=== PATIENT | female | born 1955 | race African-American/Black ===

== ENCOUNTER 2017-07-23 15:08 | Inpatient (IN) | payer OTHER ==
[2017-07-23 18:49] VITALS: BMI 35.0
--- NOTE | 2017-07-23 21:24 | HP ---
COWS - Scale Resting Pulse: 0= [place] 80 or Below Sweatin= Chills/Flushing Restless Observation: 1= Difficult to Sit Still Pupil Size: 0= Normal to Room Light Bone or Joint Aches: 1= Mild Discomfort Runny Nose/ Eye Tearin= Runny Nose/Eyes GI Upset > 30mins: 0= None Tremor Observation: 1= Tremor [place], Not Seen Yawning Observation: 1= 1-2x During Session Anxiety or Irritability: 1=Feels Anxious/Irritable Goose Flesh Skin: 0=Smooth Skin COWS Score: 8 Admission [facility] Chief Complaint: heroin withdrawal symptoms Allergies/Adverse Reactions: Allergies Allergy/AdvReac Type Severity Reaction Status Date / Time No Known Allergies Allergy Verified 07/23/17 19:50 History of Present Illness: 61 yo female heroin and nicotine dependence is here seeking detox. PMHX: HTN, GERD, anxiety, insomnia. Denies suicidal / homicidal ideation. Denies hx of OD, black outs or seizure. Exam Limitations: No Limitations - Ebola screening Have you traveled outside of the country in the last 21 days: No (N) Have you had contact with anyone from an Ebola affected area: No Have you been sick,other than usual withdrawal symptoms: No Do you have a fever: No - Review of Systems Constitutional: Chills, Changes in sleep EENT: reports: Other (uses reading glasses) Respiratory: reports: Cough Cardiac: reports: No Symptoms Reported GI: reports: Poor Fluid Intake, Indigestion : reports: No Symptoms Reported Musculoskeletal: reports: Back Pain Integumentary: reports: Other (eczema) Neuro: reports: No Symptoms reported Endocrine: reports: Increased Thirst Hematology: reports: Other (hx of anemia in the past with blood transfusion) Psychiatric: reports: Orientated x3, Anxious Other Systems: Reviewed and Negative Patient History - Patient Medical History Hx Anemia: No (hx of anemia with blood transfusion ) Hx Asthma: No Hx Chronic Obstructive Pulmonary Disease (COPD): No Hx Cancer: No Hx Cardiac Disorders: No Hx Congestive Heart Failure: No Hx Hypertension: Yes (ON [id number]) Hx Hypercholesterolemia: No Hx Pacemaker: No HX Cerebrovascular Accident: No Hx Seizures: No Hx Dementia: No Hx Diabetes: No Hx Gastrointestinal Disorders: No Hx Liver Disease: No Hx Genitourinary Disorders: No Hx Sexually Transmitted Disorders: No Hx Renal Disease (ESRD): No Hx Thyroid Disease: No Hx Human Immunodeficiency Virus (HIV): No (last tested a year ago, declines testing ) Hx Hepatitis C: No Hx Depression: No Hx Suicide Attempt: No Hx Bipolar Disorder: No Hx Schizophrenia: No Other Medical History: anxiety - Patient Surgical History Past Surgical History: No Hx Neurologic Surgery: No Hx Cataract Extraction: No Hx Cardiac Surgery: No Hx Lung Surgery: No Hx Breast Surgery: No Hx Breast Biopsy: No Hx Abdominal Surgery: No Hx Appendectomy: No Hx Cholecystectomy: No Hx Genitourinary Surgery: No Hx Section: No Hx Orthopedic Surgery: No Anesthesia Reaction: No - PPD History Previous Implant?: Yes Documented Results: Negative w/o proof Implanted On Prior R Admission?: No PPD to be Administered?: No - Reproductive History Patient is a Female of Child Bearing Age (11 -55 yrs old): No (post menopausal ) - Smoking Cessation Smoking history: Current every day smoker Have you smoked in the past 12 months: Yes Aproximately how many cigarettes per day: 10 Hx Chewing Tobacco Use: No Initiated information on smoking cessation: Yes 'Breaking Loose' booklet given: 07/23/17 - Substance & Tx. History Hx Alcohol Use: Yes Hx Substance Use: Yes Substance Use Type: Heroin Hx Substance Use Treatment: Yes (Last detox January 2017 [facility] ) - Substances Abused Heroin Route: Inhalation Frequency: Daily Amount used: 1 1/2 GRAMS DAILY Age of first use: 19 Date of Last Use: 07/23/17 Family Disease History - Family Disease History Family Disease History: Other: Father (alive ), Mother (, bleeding d/o ) Admission Physical Exam [facility] - Vital Signs Vital Signs: Vital Signs - 24 hr 07/23/17 18:47 Pulse Rate 79 Respiratory 18 Rate Blood Pressure 135/80 - Physical General Appearance: Yes: Obese, Anxious HEENTM: Yes: EOMI, Hearing grossly Normal, Normal ENT Inspection, Normocephalic , Normal Voice, Pharynx Normal, Tm's normal, Other (chelithis) Respiratory: Yes: Chest Non-Tender, No Respiratory Distress, No Accessory Muscle Use, Wheezing Neck: Yes: Within Normal Limits Breast: Yes: Breast Exam Deferred Cardiology: Yes: Regular Rhythm, Regular Rate Abdominal: Yes: Normal Bowel Sounds, Flat, Soft, Protuberent Genitourinary: Yes: Within Normal Limits Back: Yes: Normal Inspection Musculoskeletal: Yes: full range of Motion, Gait Steady, Pelvis Stable, Back pain Extremities: Yes: Within Normal Limits Neurological: Yes: shiatsu therapist II-XII NML intact, Fully Oriented, Alert, Motor Strength 5/5, Depressed Affect Integumentary: Yes: Normal Color, Warm, Moist Lymphatic: Yes: Within Normal Limits - Diagnostic (1) Hypertension Current Visit: Yes Status: Chronic Qualifiers: Hypertension type: essential hypertension Qualified Code(s): I10 - Essential (primary) hypertension (2) Opioid dependence with withdrawal Current Visit: Yes Status: Acute (3) Low back pain Current Visit: Yes Status: Acute Qualifiers: Chronicity: acute Back pain laterality: midline Sciatica presence: without sciatica Qualified Code(s): M54.5 - Low back pain (4) Dehydration Current Visit: Yes Status: Acute (5) Nicotine dependence Current Visit: Yes Status: Acute Qualifiers: Nicotine product type: cigarettes Cleared for Admission [facility] - Detox or Rehab [facility] Level of Care: Medically Supervised Detox Regimen/Protocol: Methadone [facility] Breath Alcohol Content Breath Alcohol Content: 0.008 Urine Pregancy Test - Result Urine Test Results: Negative- NO Line Present Urine Drug Screen - Results Urine Drug Screen Results: OPI-Opiates
[2017-07-23] MEDS ORDERED: MENTHOL/PHENOL 1 EACH UD MM PRN (21:34)
[2017-07-23] MEDS ORDERED: NICOTINE POLACRILEX 2 MG GUM BC PRN (21:34)
[2017-07-23] MEDS ORDERED: P-EPHED 60MG/TRIPROLIDI 2.5MG TABLET PO PRN (21:34)
[2017-07-23] MEDS ORDERED: IBUPROFEN 400 MG TABLET (FP) PO PRN (21:34)
[2017-07-23] MEDS ORDERED: LOPERAMIDE HCL 2 MG CAPSULE PO PRN (21:34)
[2017-07-23] MEDS ORDERED: MAGNESIUM CITRATE 300 ML BOTTLE PO PRN (21:34)
[2017-07-23] MEDS ORDERED: METHADONE HCL 10 MG TABLET (FOR DETOX USE ONLY) PO ONE ×2 (21:34→23:00)
[2017-07-23] MEDS ORDERED: MAG HYDROX/AL HYDROX/SIMETH 30 ML UNIT-DOSE CUP PO PRN (21:34)
[2017-07-23] MEDS ORDERED: ACETAMINOPHEN 325 MG TABLET (FP) PO PRN (21:34)
[2017-07-23] MEDS ORDERED: MAGNESIUM HYDROX 2400MG/30ML ORAL SUSPENSION 30 ML CUP PO PRN (21:34)
[2017-07-23] MEDS: LIDOCAINE 5% TOPICAL PATCH TP SCH (23:26)
[2017-07-23] MEDS: LIDOCAINE PATCH REMOVAL MC SCH (23:26)
[2017-07-23] MEDS: diazePAM 5 MG TABLET PO PRN (23:27)
[2017-07-23] MEDS: THIAMINE HCL 100 MG TABLET (FP) PO SCH (23:28)
[2017-07-24] MEDS ORDERED: METHADONE HCL 10 MG TABLET (FOR DETOX USE ONLY) PO ONE (10:00)
[2017-07-24 10:05] LABS: HEMATOCRIT 39.5 % (32.4-45.2); HEMOGLOBIN 13.2 GM/dL (10.7-15.3); MCHC 33.4 g/dl (32.0-36.0); MEAN PLT VOLUME 10.6 fl (7.5-11.1); PLATELET COUNT 158 K/MM3 (134-434); RBC 4.11 M/mm3 (3.60-5.2); RDW 15.3 % (11.6-15.6); WHITE BLOOD COUNT 10.5 K/mm3 (4.0-10.0)
--- NOTE | 2017-07-24 10:20 | EKG ---
Test Reason : Blood Pressure : / mmHG Vent. Rate : 081 BPM Atrial Rate : 081 BPM P-R Int : 170 ms QRS Dur : 080 ms QT Int : 396 ms P-R-T Axes : 054 061 092 degrees QTc Int : 460 ms NORMAL SINUS RHYTHM NONSPECIFIC T WAVE ABNORMALITY NO PREVIOUS ECGS AVAILABLE Confirmed by LIBERTAD CISNEROS MD ([id number]) on 07/24/2017 10:20:18 AM Referred By: Confirmed By:LIBERTAD CISNEROS MD
[2017-07-24 10:27] LABS: CHLORIDE 104 mmol/L (98-107); POTASSIUM 4.1 mmol/L (3.5-5.1); SODIUM 139 mmol/L (136-145)
--- NOTE | 2017-07-24 10:42 | CONSULT ---
[facility] Psychiatric Consult - Data Date of interview: 07/24/17 Admission source: [facility] Identifying data: Patient is a 61 year old female, without kids, unemployed, and is currently residing with her aunt. This is patient's first admission to detox. Pt. admitted to for heroin dependence. Substance Abuse History: Smoking Cessation. Smoking history: Current every day smoker. Have you smoked in the past 12 months: Yes. Aproximately how many cigarettes per day: 10. Hx Chewing Tobacco Use: No. Initiated information on smoking cessation: Yes. 'Breaking Loose' booklet given: 07/23/17. - Substance & Tx. History. Hx Alcohol Use: Yes. Hx Substance Use: Yes. Substance Use Type : Heroin. Hx Substance Use Treatment: Yes (Last detox January 2017 [facility] ). - Substances Abused. Heroin. Route: Inhalation. Frequency: Daily. Amount used: 1 1/2 GRAMS DAILY. Age of first use: 19. Date of Last Use : 07/23/17 Medical History: hx of anemia with blood transfusion, hypertension. Psychiatric History: Patient denies h/o psychiatric hospitalizations, outpatient care, and suicide attempt. Physical/Sexual Abuse/Trauma History: Denies. Mental Status Exam - Mental Status Exam Alert and Oriented to: Time, Place, Person Cognitive Function: Good Patient Appearance: Well Groomed Mood: Withdrawn Affect: Mood Congruent Patient Behavior: Fatigued, Cooperative Speech Pattern: Delayed Voice Loudness: Normal Thought Process: Goal Oriented Thought Disorder: Not Present Hallucinations: Denies Suicidal Ideation: Denies Homicidal Ideation: Denies Insight/Judgement: Poor Sleep: Fair Appetite: Fair Muscle strength/Tone: Normal Gait/Station: Other (Did not observe patient's gait.) Psychiatric Findings - Problem List ([place] 1, 2,3) (1) Nicotine dependence Current Visit: Yes Status: Chronic Qualifiers: Nicotine product type: cigarettes (2) Opioid dependence with withdrawal Current Visit: Yes Status: Acute - Initial Treatment Plan Initial Treatment Plan: Psychoeducation provided. Detoxification in progress. Observation.
[2017-07-24] MEDS: NICOTINE 14 MG/24 HOURS TOPICAL PATCH TD SCH (10:44)
[2017-07-24] MEDS: PRENATAL VITAMINS W/ FOLIC ACID TABLET (FP) PO SCH (10:44)
[2017-07-24] MEDS: diazePAM 5 MG TABLET PO PRN ×2 (10:45→22:36)
[2017-07-24] MEDS: HYDROCHLOROTHIAZIDE 12.5 MG CAPSULE (FP) PO SCH (10:45)
[2017-07-24] MEDS: guaiFENesin/D-METHORPHAN HB 10 ML UNIT-DOSE CUPS PO PRN (10:51)
[2017-07-24 10:53] LABS: ALBUMIN 3.2 g/dl (3.4-5.0); ALK PHOS 82 U/L (45-117); ANION GAP 8 (8-16); BILIRUBIN,TOTAL 0.4 mg/dL (0.2-1.0); BLOOD UREA NITROGEN 12 mg/dL (7-18); CALCIUM 9.1 mg/dL (8.5-10.1); CO2 27 mmol/L (21-32); CREATININE 0.9 mg/dL (0.55-1.02); GLUCOSE,RANDOM 151 mg/dL (74-106); SGOT/AST 12 U/L (15-37); SGPT/ALT 29 U/L (12-78)
[2017-07-24] MEDS: LIDOCAINE 5% TOPICAL PATCH TP SCH (11:03)
[2017-07-24] MEDS ORDERED: AZITHROMYCIN 250 MG TABLET PO ONE (11:15)
[2017-07-24 11:16] LABS: SICKLE CELL SCREEN NEGATIVE (NEGATIVE)
[2017-07-24] MEDS ORDERED: PNEUMOCOCCAL 23 VACCINE 0.5 ML VIAL IM ONE (12:00)
[2017-07-24] MEDS ORDERED: PNEUMOC 13-VAL CONJ-DIP CRM/PF 0.5 ML DISP.SYRIN IM ONE (12:00)
--- NOTE | 2017-07-24 12:33 | PN ---
[facility] COWS - Scale Resting Pulse: 1= [place] 81-100 Sweatin= Chills/Flushing Restless Observation: 1= Difficult to Sit Still Pupil Size: 1= Pupils >than Normal Bone or Joint Aches: 2= Severe Diffuse Aches Runny Nose/ Eye Tearin= Nasal Congestion GI Upset > 30mins: 1= Stomach Cramp Tremor Observation of Outstretched Hands: 2= Slight Tremor Visible Yawning Observation: 2= >3x During Session Anxiety or Irritability: 2=Irritable/Anxious Goose Flesh Skin: 0=Smooth Skin COWS Score: 14 BHS Progress Note (SOAP) Subjective: joint pain body ache elevation of blood pressure anxiety restlessness Objective: 07/24/17 12:32 Vital Signs Temperature 96.8 F L 07/24/17 09:21 Pulse Rate 82 07/24/17 09:21 Respiratory Rate 18 07/24/17 09:21 Blood Pressure 144/74 07/24/17 09:21 O2 Sat by Pulse Oximetry (%) Laboratory Last Values WBC 10.5 K/mm3 (4.0-10.0) H 07/24/17 07:30 RBC 4.11 M/mm3 (3.60-5.2) 07/24/17 07:30 Hgb 13.2 GM/dL (10.7-15.3) 07/24/17 07:30 Hct 39.5 % (32.4-45.2) 07/24/17 07:30 MCV 96.0 fl (80-96) 07/24/17 07:30 MCH 32.0 pg (25.7-33.7) 07/24/17 07:30 MCHC 33.4 g/dl (32.0-36.0) 07/24/17 07:30 RDW 15.3 % (11.6-15.6) 07/24/17 07:30 Plt Count 158 K/MM3 (134-434) 07/24/17 07:30 MPV 10.6 fl (7.5-11.1) 07/24/17 07:30 Sickle Cell Screen Negative (NEGATIVE) 07/24/17 07:30 Sodium 139 mmol/L (136-145) 07/24/17 07:30 Potassium 4.1 mmol/L (3.5-5.1) 07/24/17 07:30 Chloride 104 mmol/L (98-107) 07/24/17 07:30 Carbon Dioxide 27 mmol/L (21-32) 07/24/17 07:30 Anion Gap 8 (8-16) 07/24/17 07:30 BUN 12 mg/dL (7-18) 07/24/17 07:30 Creatinine 0.9 mg/dL (0.55-1.02) 07/24/17 07:30 Creat Clearance w eGFR > 60 (>60) 07/24/17 07:30 Random Glucose 151 mg/dL (74-106) H 07/24/17 07:30 Calcium 9.1 mg/dL (8.5-10.1) 07/24/17 07:30 Total Bilirubin 0.4 mg/dL (0.2-1.0) 07/24/17 07:30 AST 12 U/L (15-37) L 07/24/17 07:30 ALT 29 U/L (12-78) 07/24/17 07:30 Alkaline Phosphatase 82 U/L (45-117) 07/24/17 07:30 Total Protein 7.0 g/dl (6.4-8.2) 07/24/17 07:30 Albumin 3.2 g/dl (3.4-5.0) L 07/24/17 07:30 lab noted Assessment: 07/24/17 12:32 withdrawal sx Plan: continue detox
[2017-07-24] MEDS: amLODIPine BESYLATE 10 MG TABLET (FP) PO SCH (15:15)
[2017-07-24] MEDS ORDERED: cloNIDine HCL 0.1 MG TABLET PO ONE (22:00)
--- NOTE | 2017-07-24 22:07 | PN ---
[facility] Progress Note Note: Called by Nurse because of elevated B/P. (R) 173/110. (L) 170/113. Had Norvasc 10 mg BID today (2nd dose at 15:15). Vital Signs - 24 hr 07/23/17 07/24/17 07/24/17 23:43 00:30 03:30 Temperature 97.5 F L Pulse Rate 87 Respiratory 18 16 16 Rate Blood Pressure 160/94 07/24/17 07/24/17 07/24/17 06:30 06:37 07:07 Temperature 98 F Pulse Rate 86 68 Respiratory 16 18 18 Rate Blood Pressure 164/102 126/68 07/24/17 07/24/17 07/24/17 09:21 14:24 18:11 Temperature 96.8 F L 98.1 F 97.9 F Pulse Rate 82 93 H 89 Respiratory 18 16 18 Rate Blood Pressure 144/74 149/95 155/108 07/24/17 21:25 Temperature 98.9 F Pulse Rate 95 H Respiratory 18 Rate Blood Pressure 173/110 Laboratory Results - last 24 hr 07/24/17 07/24/17 07/24/17 07:30 07:30 07:30 WBC 10.5 H RBC 4.11 Hgb 13.2 Hct 39.5 MCV 96.0 MCH 32.0 MCHC 33.4 RDW 15.3 Plt Count 158 MPV 10.6 Sickle Cell Screen Negative Sodium 139 Potassium 4.1 Chloride 104 Carbon Dioxide 27 Anion Gap 8 BUN 12 Creatinine 0.9 Creat Clearance w eGFR > 60 Random Glucose 151 H Calcium 9.1 Total Bilirubin 0.4 AST 12 L ALT 29 Alkaline Phosphatase 82 Total Protein 7.0 Albumin 3.2 L RPR Titer Nonreactive Denies chest pain, SOB, headache/neuro changes. Prescribed Clonidine 0.2 mg one dose at 10 pm. Continue B/P protocol.
[2017-07-24] MEDS: THIAMINE HCL 100 MG TABLET (FP) PO SCH (22:36)
[2017-07-24] MEDS: LIDOCAINE PATCH REMOVAL MC SCH (22:37)
[2017-07-24] MEDS: MELATONIN 5 MG TABLETS PO PRN (22:37)
[2017-07-25] MEDS: cloNIDine HCL 0.1 MG TABLET PO PRN (06:49)
[2017-07-25] MEDS ORDERED: METHADONE HCL 5 MG TABLET (FOR DETOX USE ONLY) PO ONE (10:00)
[2017-07-25] MEDS: amLODIPine BESYLATE 10 MG TABLET (FP) PO SCH (10:30)
[2017-07-25] MEDS: HYDROCHLOROTHIAZIDE 12.5 MG CAPSULE (FP) PO SCH (10:31)
[2017-07-25] MEDS: PRENATAL VITAMINS W/ FOLIC ACID TABLET (FP) PO SCH (10:31)
[2017-07-25] MEDS: diazePAM 5 MG TABLET PO PRN (10:31)
[2017-07-25] MEDS: AZITHROMYCIN 250 MG TABLET PO SCH (10:31)
[2017-07-25] MEDS: LIDOCAINE 5% TOPICAL PATCH TP SCH (10:33)
[2017-07-25] MEDS: NICOTINE 14 MG/24 HOURS TOPICAL PATCH TD SCH (10:33)
--- NOTE | 2017-07-25 14:02 | PN ---
S Progress Note (SOAP) Subjective: alert,anxious,interrupted sleep, body aches, cough Objective: 07/25/17 13:59 Vital Signs Temperature 98.1 F 07/25/17 10:00 Pulse Rate 96 H 07/25/17 10:00 Respiratory Rate 18 07/25/17 10:00 Blood Pressure 134/97 07/25/17 10:00 O2 Sat by Pulse Oximetry (%) Laboratory Last Values WBC 10.5 K/mm3 (4.0-10.0) H 07/24/17 07:30 RBC 4.11 M/mm3 (3.60-5.2) 07/24/17 07:30 Hgb 13.2 GM/dL (10.7-15.3) 07/24/17 07:30 Hct 39.5 % (32.4-45.2) 07/24/17 07:30 MCV 96.0 fl (80-96) 07/24/17 07:30 MCH 32.0 pg (25.7-33.7) 07/24/17 07:30 MCHC 33.4 g/dl (32.0-36.0) 07/24/17 07:30 RDW 15.3 % (11.6-15.6) 07/24/17 07:30 Plt Count 158 K/MM3 (134-434) 07/24/17 07:30 MPV 10.6 fl (7.5-11.1) 07/24/17 07:30 Sickle Cell Screen Negative (NEGATIVE) 07/24/17 07:30 Sodium 139 mmol/L (136-145) 07/24/17 07:30 Potassium 4.1 mmol/L (3.5-5.1) 07/24/17 07:30 Chloride 104 mmol/L (98-107) 07/24/17 07:30 Carbon Dioxide 27 mmol/L (21-32) 07/24/17 07:30 Anion Gap 8 (8-16) 07/24/17 07:30 BUN 12 mg/dL (7-18) 07/24/17 07:30 Creatinine 0.9 mg/dL (0.55-1.02) 07/24/17 07:30 Creat Clearance w eGFR > 60 (>60) 07/24/17 07:30 Random Glucose 151 mg/dL (74-106) H 07/24/17 07:30 Calcium 9.1 mg/dL (8.5-10.1) 07/24/17 07:30 Total Bilirubin 0.4 mg/dL (0.2-1.0) 07/24/17 07:30 AST 12 U/L (15-37) L 07/24/17 07:30 ALT 29 U/L (12-78) 07/24/17 07:30 Alkaline Phosphatase 82 U/L (45-117) 07/24/17 07:30 Total Protein 7.0 g/dl (6.4-8.2) 07/24/17 07:30 Albumin 3.2 g/dl (3.4-5.0) L 07/24/17 07:30 RPR Titer Nonreactive (NONREACTIVE) 07/24/17 07:30 Assessment: 07/25/17 13:59 AOx3, no distress + cough no adventitious breath sounds + body aches Full ROM, ambulating in the unit -withdrawal sx 07/25/17 14:02 Plan: Increase fluids continue Azithromycin and Guaifenessin DM 10 ml q6h Continue detox continue to monitor
[2017-07-25] MEDS: THIAMINE HCL 100 MG TABLET (FP) PO SCH (22:51)
[2017-07-25] MEDS: LIDOCAINE PATCH REMOVAL MC SCH (22:51)
[2017-07-26] MEDS: MELATONIN 5 MG TABLETS PO PRN (00:39)
[2017-07-26] MEDS: diazePAM 5 MG TABLET PO PRN ×3 (04:24→16:47)
[2017-07-26] MEDS ORDERED: METHADONE HCL 5 MG TABLET (FOR DETOX USE ONLY) PO ONE (10:00)
[2017-07-26] MEDS: HYDROCHLOROTHIAZIDE 12.5 MG CAPSULE (FP) PO SCH (10:29)
[2017-07-26] MEDS: NICOTINE 14 MG/24 HOURS TOPICAL PATCH TD SCH (10:29)
[2017-07-26] MEDS: LIDOCAINE 5% TOPICAL PATCH TP SCH (10:29)
[2017-07-26] MEDS: PRENATAL VITAMINS W/ FOLIC ACID TABLET (FP) PO SCH (10:29)
[2017-07-26] MEDS: amLODIPine BESYLATE 10 MG TABLET (FP) PO SCH (10:29)
[2017-07-26] MEDS: AZITHROMYCIN 250 MG TABLET PO SCH (10:29)
[2017-07-26] MEDS: ALBUTEROL SO4 0.042% IH SOL 1.25 MG/3 ML VIAL.NEB NEB PRN ×2 (12:45→23:50)
[2017-07-26] MEDS: BUDESONIDE/FORMETEROL FUMARATE 80/4.5 mcg INHALER IH SCH ×2 (12:49→22:38)
--- NOTE | 2017-07-26 14:07 | PN ---
S Progress Note (SOAP) Subjective: joint pain body ache anxiety Objective: 07/26/17 14:07 Vital Signs Temperature 97.1 F L 07/26/17 09:22 Pulse Rate 98 H 07/26/17 09:22 Respiratory Rate 18 07/26/17 09:22 Blood Pressure 134/97 07/26/17 09:22 O2 Sat by Pulse Oximetry (%) Laboratory Last Values WBC 10.5 K/mm3 (4.0-10.0) H 07/24/17 07:30 RBC 4.11 M/mm3 (3.60-5.2) 07/24/17 07:30 Hgb 13.2 GM/dL (10.7-15.3) 07/24/17 07:30 Hct 39.5 % (32.4-45.2) 07/24/17 07:30 MCV 96.0 fl (80-96) 07/24/17 07:30 MCH 32.0 pg (25.7-33.7) 07/24/17 07:30 MCHC 33.4 g/dl (32.0-36.0) 07/24/17 07:30 RDW 15.3 % (11.6-15.6) 07/24/17 07:30 Plt Count 158 K/MM3 (134-434) 07/24/17 07:30 MPV 10.6 fl (7.5-11.1) 07/24/17 07:30 Sickle Cell Screen Negative (NEGATIVE) 07/24/17 07:30 Sodium 139 mmol/L (136-145) 07/24/17 07:30 Potassium 4.1 mmol/L (3.5-5.1) 07/24/17 07:30 Chloride 104 mmol/L (98-107) 07/24/17 07:30 Carbon Dioxide 27 mmol/L (21-32) 07/24/17 07:30 Anion Gap 8 (8-16) 07/24/17 07:30 BUN 12 mg/dL (7-18) 07/24/17 07:30 Creatinine 0.9 mg/dL (0.55-1.02) 07/24/17 07:30 Creat Clearance w eGFR > 60 (>60) 07/24/17 07:30 Random Glucose 151 mg/dL (74-106) H 07/24/17 07:30 Calcium 9.1 mg/dL (8.5-10.1) 07/24/17 07:30 Total Bilirubin 0.4 mg/dL (0.2-1.0) 07/24/17 07:30 AST 12 U/L (15-37) L 07/24/17 07:30 ALT 29 U/L (12-78) 07/24/17 07:30 Alkaline Phosphatase 82 U/L (45-117) 07/24/17 07:30 Total Protein 7.0 g/dl (6.4-8.2) 07/24/17 07:30 Albumin 3.2 g/dl (3.4-5.0) L 07/24/17 07:30 RPR Titer Nonreactive (NONREACTIVE) 07/24/17 07:30 lab noted Assessment: 07/26/17 14:07 withdrawal sx asthma Plan: continue detox asthma pump nebulizer symbicort
[2017-07-26] MEDS: ALBUTEROL SO4 18 GM HFA INHALER IH PRN ×2 (14:57→22:38)
[2017-07-26] MEDS: guaiFENesin/D-METHORPHAN HB 10 ML UNIT-DOSE CUPS PO PRN (14:58)
[2017-07-26] MEDS: predniSONE 20 MG TABLET (UD) PO SCH (17:25)
--- NOTE | 2017-07-26 17:27 | PN ---
[facility] Progress Note Note: Patient is a 61 yo female with hx of COPD with cough and wheezing. Tx with Neb tx . Denies CP, SOB, vertigo. Vital Signs Temperature 97.9 F 07/26/17 14:07 Pulse Rate 106 H 07/26/17 14:07 Respiratory Rate 18 07/26/17 14:07 Blood Pressure 136/97 07/26/17 14:07 O2 Sat by Pulse Oximetry (%) Laboratory Last Values WBC 10.5 K/mm3 (4.0-10.0) H 07/24/17 07:30 RBC 4.11 M/mm3 (3.60-5.2) 07/24/17 07:30 Hgb 13.2 GM/dL (10.7-15.3) 07/24/17 07:30 Hct 39.5 % (32.4-45.2) 07/24/17 07:30 MCV 96.0 fl (80-96) 07/24/17 07:30 MCH 32.0 pg (25.7-33.7) 07/24/17 07:30 MCHC 33.4 g/dl (32.0-36.0) 07/24/17 07:30 RDW 15.3 % (11.6-15.6) 07/24/17 07:30 Plt Count 158 K/MM3 (134-434) 07/24/17 07:30 MPV 10.6 fl (7.5-11.1) 07/24/17 07:30 Sickle Cell Screen Negative (NEGATIVE) 07/24/17 07:30 Sodium 139 mmol/L (136-145) 07/24/17 07:30 Potassium 4.1 mmol/L (3.5-5.1) 07/24/17 07:30 Chloride 104 mmol/L (98-107) 07/24/17 07:30 Carbon Dioxide 27 mmol/L (21-32) 07/24/17 07:30 Anion Gap 8 (8-16) 07/24/17 07:30 BUN 12 mg/dL (7-18) 07/24/17 07:30 Creatinine 0.9 mg/dL (0.55-1.02) 07/24/17 07:30 Creat Clearance w eGFR > 60 (>60) 07/24/17 07:30 Random Glucose 151 mg/dL (74-106) H 07/24/17 07:30 Calcium 9.1 mg/dL (8.5-10.1) 07/24/17 07:30 Total Bilirubin 0.4 mg/dL (0.2-1.0) 07/24/17 07:30 AST 12 U/L (15-37) L 07/24/17 07:30 ALT 29 U/L (12-78) 07/24/17 07:30 Alkaline Phosphatase 82 U/L (45-117) 07/24/17 07:30 Total Protein 7.0 g/dl (6.4-8.2) 07/24/17 07:30 Albumin 3.2 g/dl (3.4-5.0) L 07/24/17 07:30 RPR Titer Nonreactive (NONREACTIVE) 07/24/17 07:30 chest x-ray 07/24/17 negative for pneumonia A/P Patient AOx3, in no apparent distress + cough, + wheezing b/l lower lobes, resp non-labored s1, s2, no jvd no edema, erythema - Bronchitis Plan: [place] 500mg today + 250 mg x 4 days prednisone 40mg x 3 days DuoNEB PRN increase fluids continue to monitor
[2017-07-26] MEDS ORDERED: AZITHROMYCIN 250 MG TABLET PO ONE (17:30)
[2017-07-26] MEDS: guaiFENesin/D-METHORPHAN HB 1 EACH TAB.ER.12H PO SCH (22:39)
[2017-07-26] MEDS: THIAMINE HCL 100 MG TABLET (FP) PO SCH (22:39)
[2017-07-26] MEDS: hydrOXYzine PAMOATE 50 MG CAPSULE (FP) PO PRN (22:41)
[2017-07-26] MEDS: LIDOCAINE PATCH REMOVAL MC SCH (22:46)
[2017-07-27] MEDS: ALBUTEROL SO4 0.042% IH SOL 1.25 MG/3 ML VIAL.NEB NEB PRN (05:52)
[2017-07-27] MEDS: cloNIDine HCL 0.1 MG TABLET PO PRN ×2 (05:53→22:44)
[2017-07-27] MEDS: hydrOXYzine PAMOATE 50 MG CAPSULE (FP) PO PRN (05:53)
[2017-07-27] MEDS ORDERED: metFORMIN HCL 500 MG TABLET (FP) PO ONE (09:30)
--- NOTE | 2017-07-27 09:39 | PN ---
[facility] Progress Note (SOAP) Subjective: less opiate withdrawal less sweat no tremor mild joint pain chronic back pain Objective: 07/27/17 09:38 Vital Signs Temperature 98.2 F 07/27/17 06:10 Pulse Rate 102 H 07/27/17 06:50 Respiratory Rate 20 07/27/17 06:50 Blood Pressure 117/74 07/27/17 06:50 O2 Sat by Pulse Oximetry (%) Laboratory Last Values WBC 10.5 K/mm3 (4.0-10.0) H 07/24/17 07:30 RBC 4.11 M/mm3 (3.60-5.2) 07/24/17 07:30 Hgb 13.2 GM/dL (10.7-15.3) 07/24/17 07:30 Hct 39.5 % (32.4-45.2) 07/24/17 07:30 MCV 96.0 fl (80-96) 07/24/17 07:30 MCH 32.0 pg (25.7-33.7) 07/24/17 07:30 MCHC 33.4 g/dl (32.0-36.0) 07/24/17 07:30 RDW 15.3 % (11.6-15.6) 07/24/17 07:30 Plt Count 158 K/MM3 (134-434) 07/24/17 07:30 MPV 10.6 fl (7.5-11.1) 07/24/17 07:30 Sickle Cell Screen Negative (NEGATIVE) 07/24/17 07:30 Sodium 139 mmol/L (136-145) 07/24/17 07:30 Potassium 4.1 mmol/L (3.5-5.1) 07/24/17 07:30 Chloride 104 mmol/L (98-107) 07/24/17 07:30 Carbon Dioxide 27 mmol/L (21-32) 07/24/17 07:30 Anion Gap 8 (8-16) 07/24/17 07:30 BUN 12 mg/dL (7-18) 07/24/17 07:30 Creatinine 0.9 mg/dL (0.55-1.02) 07/24/17 07:30 Creat Clearance w eGFR > 60 (>60) 07/24/17 07:30 POC Glucometer 241 UNITS (80-120) 07/27/17 05:56 Random Glucose 151 mg/dL (74-106) H 07/24/17 07:30 Calcium 9.1 mg/dL (8.5-10.1) 07/24/17 07:30 Total Bilirubin 0.4 mg/dL (0.2-1.0) 07/24/17 07:30 AST 12 U/L (15-37) L 07/24/17 07:30 ALT 29 U/L (12-78) 07/24/17 07:30 Alkaline Phosphatase 82 U/L (45-117) 07/24/17 07:30 Total Protein 7.0 g/dl (6.4-8.2) 07/24/17 07:30 Albumin 3.2 g/dl (3.4-5.0) L 07/24/17 07:30 RPR Titer Nonreactive (NONREACTIVE) 07/24/17 07:30 lab noted Assessment: 07/27/17 09:38 mild opiate withdrawal sx hypertension asthma 07/27/17 09:39 copd elevation of serum glucose possible related to prednison for copd treatment 07/27/17 09:42 Plan: medically supervised detox health teaching on weight loss dietary consultation on DM
[2017-07-27] MEDS ORDERED: METHADONE HCL 10 MG TABLET (FOR DETOX USE ONLY) PO ONE (10:00)
[2017-07-27] MEDS: predniSONE 20 MG TABLET (UD) PO SCH (10:23)
[2017-07-27] MEDS: PRENATAL VITAMINS W/ FOLIC ACID TABLET (FP) PO SCH (10:23)
[2017-07-27] MEDS: amLODIPine BESYLATE 10 MG TABLET (FP) PO SCH (10:23)
[2017-07-27] MEDS: AZITHROMYCIN 250 MG TABLET PO SCH (10:23)
[2017-07-27] MEDS: HYDROCHLOROTHIAZIDE 12.5 MG CAPSULE (FP) PO SCH (10:23)
[2017-07-27] MEDS: BUDESONIDE/FORMETEROL FUMARATE 80/4.5 mcg INHALER IH SCH ×2 (10:24→22:46)
[2017-07-27] MEDS: LIDOCAINE 5% TOPICAL PATCH TP SCH (10:30)
--- NOTE | 2017-07-27 10:49 | PN ---
Psychiatric Progress Note Vital Signs: Vital Signs Period Temp Pulse Resp BP Sys/Roy Pulse Ox Last 24 Hr 97.5 F-98.4 F 102-110 18-20 117-146/74-109 Date of Session: 07/27/17 Chief Complaint:: Insomnia HPI: Patient reports severe insomnia, reports did sleeo well since coming to detox. Patient reports taskign p[rior to admission: Seroquel 200mg po qhs. Elavil 100mg po qhs Current Medications: Active Medications Generic Name Dose Route Start Last Admin Trade Name Freq PRN Reason Stop Dose Admin Acetaminophen 650 mg 07/23/17 21:34 Tylenol - PO Q4H PRN FEVER Al Hydroxide/Mg Hydroxide 30 ml 07/23/17 21:34 Mylanta Oral Suspension - PO Q6H PRN DYSPEPSIA Albuterol Sulfate 1 amp 07/26/17 12:27 07/27/17 05:52 Ventolin 0.042trength) - NEB 1 amp Q6H PRN Administration SHORT OF BREATH/WHEEZING Albuterol Sulfate 2 puff 07/26/17 12:27 07/26/17 22:38 Ventolin Hfa Inhaler - IH 2 puff Q4H PRN Administration SHORT OF BREATH/WHEEZING Amlodipine Besylate 10 mg 07/24/17 11:15 07/27/17 10:23 Norvasc - PO 10 mg DAILY CLAIRE Administration Azithromycin 250 mg 07/27/17 10:00 07/27/17 10:23 Zithromax - PO 07/30/17 10:00 250 mg DAILY CLAIRE Administration Budesonide/Formoterol Fumarate 2 puff 07/26/17 12:30 07/27/17 10:24 Symbicort 80/4.5mcg - IH 2 puff BID CLAIRE Administration Clonidine 0.1 mg 07/25/17 06:07 07/27/17 05:53 Catapres - PO 0.1 mg Q8H PRN Administration withdrawal sx's Eucalyptus/Menthol/Phenol/Sorbitol 1 each 07/23/17 21:34 Cepastat Lozenge - MM Q4H PRN SORE THROAT Guaifenesin 1 tablet 07/26/17 22:00 07/26/17 22:39 Mucinex Dm - PO 1 tablet BID CLAIRE Administration Hydrochlorothiazide 12.5 mg 07/24/17 10:00 07/27/17 10:23 Hctz - PO 12.5 mg DAILY CLAIRE Administration Hydroxyzine Pamoate 50 mg 07/23/17 21:34 07/27/17 05:53 Vistaril - PO 50 mg Q4H PRN Administration AGITATION Ibuprofen 400 mg 07/23/17 21:34 07/26/17 16:46 Motrin - PO 400 mg Q6H PRN Administration PAIN LEVEL 4-6 Lidocaine 1 patch 07/23/17 21:45 07/27/17 10:30 Lidoderm Patch - TP Not Given DAILY CLAIRE Loperamide HCl 4 mg 07/23/17 21:34 07/23/17 23:38 Imodium - PO 4 mg Q6H PRN Administration DIARRHEA Magnesium Citrate 300 ml 07/23/17 21:34 Citroma - PO Q48H PRN CONSTIPATION Magnesium Hydroxide 30 ml 07/23/17 21:34 Milk Of Magnesia - PO DAILY PRN CONSTIPATION Melatonin 5 mg 07/23/17 22:00 07/26/17 00:39 Melatonin PO 5 mg HS PRN Administration INSOMNIA Metformin HCl 500 mg 07/28/17 07:00 Glucophage - PO DAILY@0700 [facility]IRE Methadone HCl 5 mg 07/28/17 06:00 Dolophine - PO 07/28/17 06:01 ONCE@0600 ONE Miscellaneous 1 each 07/23/17 22:00 07/26/17 22:46 Lidoderm Patch Removal MC Not Given DAILY@2200 [facility] Nicotine 14 mg 07/24/17 10:00 07/26/17 10:29 Nicoderm Patch - TD Not Given DAILY [facility] Nicotine Polacrilex 2 mg 07/23/17 21:34 Nicorette Gum - BC Q2H PRN NICOTINE REPLACEMENT RX Prednisone 40 mg 07/26/17 17:30 07/27/17 10:23 Deltasone - PO 40 mg DAILY [facility]IRE Administration Multivit/Folic Acid/Iron 1 tab 07/24/17 10:00 07/27/17 10:23 Vitamins (Sjr) - PO 1 tab DAILY CLAIRE Administration Pseudoephedrine/Triprolidine 1 combo 07/23/17 21:34 Actifed - PO TID PRN NASAL CONGESTION Thiamine HCl 100 mg 07/23/17 22:00 07/26/17 22:39 Vitamin B1 - PO 100 mg HS CLAIRE Administration Medication(s) Change(s): Seroquel 200mg po qhs. Elavil 100mg po qhs Provider note:: Patient insist on these dosages, reports has been on those medications for depression and insomnia for many years Mental Status Exam - Mental Status Exam Alert and Oriented to: Place, Person Cognitive Function: Fair Patient Appearance: Well Groomed Mood: Angry, Nervous Affect: Mood Congruent Patient Behavior: Guarded, Cooperative Speech Pattern: Appropriate Voice Loudness: Normal Thought Process: Goal Oriented Thought Disorder: Being Controlled Hallucinations: Denies Suicidal Ideation: Denies Homicidal Ideation: Denies Insight/Judgement: Fair Sleep: Difficulty falling asleep Appetite: Weight gain Muscle strength/Tone: Normal Gait/Station: Normal Additional Comments: Seroquel 200mg po qhs. Elavil 100mg po qhs Psychiatric Treatment Plan - Problem List (1) Drug-induced mood disorder Current Visit: Yes (2) Opioid dependence with withdrawal Current Visit: Yes (3) Nicotine dependence Current Visit: Yes Qualifiers: Nicotine product type: cigarettes Initial treatment plan: Seroquel 200mg po qhs. Elavil 100mg po qhs
[2017-07-27] MEDS: guaiFENesin/D-METHORPHAN HB 1 EACH TAB.ER.12H PO SCH ×2 (10:55→22:45)
[2017-07-27] MEDS: NICOTINE 14 MG/24 HOURS TOPICAL PATCH TD SCH (10:55)
[2017-07-27] MEDS ORDERED: ALBUTEROL SO4 0.083% IH SOL 2.5 MG/3 ML VIAL.NEB. NEB PRN (15:09)
[2017-07-27] MEDS ORDERED: QUEtiapine FUMARATE 200 MG TABLET PO SCH (22:00)
[2017-07-27] MEDS ORDERED: AMITRIPTYLINE HCL 100 MG TABLET PO SCH (22:00)
[2017-07-27] MEDS: THIAMINE HCL 100 MG TABLET (FP) PO SCH (22:45)
[2017-07-27] MEDS: LIDOCAINE PATCH REMOVAL MC SCH (23:15)
[2017-07-28] MEDS ORDERED: METHADONE HCL 5 MG TABLET (FOR DETOX USE ONLY) PO ONE (06:00)
[2017-07-28] MEDS ORDERED: metFORMIN HCL 500 MG TABLET (FP) PO SCH (07:00)
[2017-07-28 09:25] VITALS: BP 138/93; PULSE 99; TEMP 97.3
--- NOTE | 2017-07-28 09:50 | DS ---
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 with educational material of diabetes diet aftercare [facility] as per counselor arrangement - Physical Exam Results Vital Signs: Vital Signs Temperature 97.3 F L 07/28/17 09:24 Pulse Rate 99 H 07/28/17 09:24 Respiratory Rate 18 07/28/17 09:24 Blood Pressure 138/93 07/28/17 09:24 O2 Sat by Pulse Oximetry (%) Pertinent Admission Physical Exam Findings: opiate withdrawal sx Vital Signs Temperature 97.3 F L 07/28/17 09:24 Pulse Rate 99 H 07/28/17 09:24 Respiratory Rate 18 07/28/17 09:24 Blood Pressure 138/93 07/28/17 09:24 O2 Sat by Pulse Oximetry (%) Laboratory Last Values WBC 10.5 K/mm3 (4.0-10.0) H 07/24/17 07:30 RBC 4.11 M/mm3 (3.60-5.2) 07/24/17 07:30 Hgb 13.2 GM/dL (10.7-15.3) 07/24/17 07:30 Hct 39.5 % (32.4-45.2) 07/24/17 07:30 MCV 96.0 fl (80-96) 07/24/17 07:30 MCH 32.0 pg (25.7-33.7) 07/24/17 07:30 MCHC 33.4 g/dl (32.0-36.0) 07/24/17 07:30 RDW 15.3 % (11.6-15.6) 07/24/17 07:30 Plt Count 158 K/MM3 (134-434) 07/24/17 07:30 MPV 10.6 fl (7.5-11.1) 07/24/17 07:30 Sickle Cell Screen Negative (NEGATIVE) 07/24/17 07:30 Sodium 139 mmol/L (136-145) 07/24/17 07:30 Potassium 4.1 mmol/L (3.5-5.1) 07/24/17 07:30 Chloride 104 mmol/L (98-107) 07/24/17 07:30 Carbon Dioxide 27 mmol/L (21-32) 07/24/17 07:30 Anion Gap 8 (8-16) 07/24/17 07:30 BUN 12 mg/dL (7-18) 07/24/17 07:30 Creatinine 0.9 mg/dL (0.55-1.02) 07/24/17 07:30 Creat Clearance w eGFR > 60 (>60) 07/24/17 07:30 POC Glucometer 174 UNITS (80-120) 07/28/17 06:22 Random Glucose 151 mg/dL (74-106) H 07/24/17 07:30 Hemoglobin A1c % 7.9 % (4.8-6.0) H 07/27/17 07:00 Calcium 9.1 mg/dL (8.5-10.1) 07/24/17 07:30 Total Bilirubin 0.4 mg/dL (0.2-1.0) 07/24/17 07:30 AST 12 U/L (15-37) L 07/24/17 07:30 ALT 29 U/L (12-78) 07/24/17 07:30 Alkaline Phosphatase 82 U/L (45-117) 07/24/17 07:30 Total Protein 7.0 g/dl (6.4-8.2) 07/24/17 07:30 Albumin 3.2 g/dl (3.4-5.0) L 07/24/17 07:30 RPR Titer Nonreactive (NONREACTIVE) 07/24/17 07:30 lab noted hgb a1c 7.9 begin diabetes diet bgm monitoring metformin - Treatment Hospital Course: Detox Protocol Followed, Detoxed Safely, Responded well, Discharged Condition Good, Rehab Referral Accepted Patient has Accepted a Rehab Referral to: [facility] as per counselor arranged - Medication Discharge Medications: Ambulatory Orders Albuterol Sulfate 0.042% [Ventolin 0.042% (Half-Strength) -] 1 amp NEB Q6H PRN # 0 amp 07/27/17 Albuterol Sulfate Inhaler - [Ventolin HFA Inhaler -] 2 puff IH Q4H PRN #1 inhaler 07/27/17 Amitriptyline HCl [Elavil -] 100 mg PO HS #30 tablet 07/27/17 Amlodipine Besylate [Norvasc -] 10 mg PO DAILY #30 tablet 07/27/17 Azithromycin [Zithromax 250mg Tablets -] 250 mg PO DAILY 1 Days #1 tablet Budesonide/Formeterol Fumarate [SYMBICORT 80/4.5mcg -] 2 puff IH BID #1 inhaler 07/27/17 Hydrochlorothiazide 12.5 mg PO DAILY #30 tablet 07/27/17 Quetiapine Fumarate [Seroquel -] 200 mg PO HS #30 tablet 07/27/17 metFORMIN HCL [Glucophage -] 500 mg PO DAILY@0700 #30 tablet 07/27/17 predniSONE [Deltasone -] 40 mg PO DAILY 3 Days #3 tablet 07/27/17 - Diagnosis (1) Diabetes mellitus type II, non insulin dependent Current Visit: Yes Status: Chronic (2) Asthma Current Visit: Yes Status: Chronic Qualifiers: Asthma severity: mild Asthma persistence: intermittent Asthma complication type: with status asthmaticus Qualified Code(s): J45.22 - Mild intermittent asthma with status asthmaticus (3) Hypertension Current Visit: Yes Status: Chronic Qualifiers: Hypertension type: essential hypertension Qualified Code(s): I10 - Essential (primary) hypertension (4) Opioid dependence with withdrawal Current Visit: Yes Status: Acute (5) Nicotine dependence Current Visit: Yes Status: Acute Qualifiers: Nicotine product type: cigarettes Substance use status: in withdrawal Qualified Code(s): F17.213 - Nicotine dependence, cigarettes, with withdrawal - AMA Did Patient Leave Against Medical Advice: No
[2017-07-28] MEDS: AZITHROMYCIN 250 MG TABLET PO SCH (11:50)
[2017-07-28] MEDS: HYDROCHLOROTHIAZIDE 12.5 MG CAPSULE (FP) PO SCH (11:50)
[2017-07-28] MEDS: amLODIPine BESYLATE 10 MG TABLET (FP) PO SCH (11:50)
[2017-07-28] MEDS: predniSONE 20 MG TABLET (UD) PO SCH (11:50)
[2017-07-28] MEDS: PRENATAL VITAMINS W/ FOLIC ACID TABLET (FP) PO SCH (11:52)
[2017-07-28] MEDS: NICOTINE 14 MG/24 HOURS TOPICAL PATCH TD SCH (11:52)
[2017-07-28] MEDS: guaiFENesin/D-METHORPHAN HB 1 EACH TAB.ER.12H PO SCH (11:52)
[2017-07-28] MEDS: LIDOCAINE 5% TOPICAL PATCH TP SCH (11:52)
[2017-07-28] MEDS: BUDESONIDE/FORMETEROL FUMARATE 80/4.5 mcg INHALER IH SCH (11:52)
== END 2017-07-28 12:56 | disposition home or self-care (01) | DRG 773 ==
LOC: YASAS 15:08 → Y6N 20:53
PROVIDERS: ADMIT Surgery; ATTEND Surgery
PROC: HZ2ZZZZ Detoxification Services for Substance Abuse Treatment (ICD-10-PCS; principal; 2017-07-23)
DX: F11.23 Opioid dependence with withdrawal (principal); F17.213 Nicotine dependence, cigarettes, with withdrawal; F19.24 Other psychoactive substance dependence with psychoactive substance-induced mood disorder; I10 Essential (primary) hypertension; E11.65 Type 2 diabetes mellitus with hyperglycemia; J45.22 Mild intermittent asthma with status asthmaticus; J44.9 Chronic obstructive pulmonary disease, unspecified; J20.9 Acute bronchitis, unspecified; E86.0 Dehydration; M54.5 Low back pain; Z91.14 Patient's other noncompliance with medication regimen; Z79.84 Long term (current) use of oral hypoglycemic drugs
CPT/HCPCS: 36415; 71046-TC-FY; 80053; 82962; 83036; 85027; 85660; 86593; 93005; 93010; 94640; J0735